=== PATIENT | female | born 1975 | race Caucasian/White ===

== ENCOUNTER 2017-02-01 10:16 | Emergency (ER) | payer BC ==
[~2017-02-01] VITALS: Ht 149.9 cm; Wt 65.5 kg
[~2017-02-01 10:16] MED LIST: FL.05O60 TOP
[2017-02-01 10:18] VITALS: Ht 149.9 cm; Wt 65.5 kg
--- NOTE | 2017-02-01 10:44 | ERD ---
ER Documentation Chief Complaint Date/Time DATE: 02/01/17 TIME: 10:41 Chief Complaint left 1st toe pain/swelling HPI This is a 41-year-old female who presents the emergency department today complaining of left foot and toe pain after being and falling yesterday while wearing a pair of slippers. States that she thought it would be okay this morning but woke up and there is swelling and bruising and she has difficulty bearing weight. States she took ibuprofen last night. Denies any previous trauma, fevers or chills. ROS All systems reviewed and are negative except as per history of present illness. Medications Home Meds Active Scripts Naproxen* (Naprosyn*) 500 Mg Tablet, 500 MG PO BID Y for PAIN AND/OR INFLAMMATION, #30 TAB Prov:LACI SMITH PA-C 02/01/17 Hydrocodone/Acetaminophen ([place] 5-325 Tablet) 1 Each Tablet, 1 TAB PO Q6H Y for PAIN, #10 TAB Prov:LACI SMITH PA-C 02/01/17 Fluocinonide* (Lidex* Oint) 60 Gm Oint, 1 APPLIC TOP BID for 14 Days, EA Prov:PRASANNA LEAL GAS SINGER 08/24/15 Allergies Allergies: Coded Allergies: No Known Allergy (Unverified , 12/24/13) PMhx/Soc History of Surgery: Yes (TUBAL LIGATION) Anesthesia Reaction: No Hx Neurological Disorder: No Hx Respiratory Disorders: No Hx Cardiac Disorders: No Hx Psychiatric Problems: No Hx Miscellaneous Medical Probl: No (ECZEMA ) Hx Alcohol Use: No Hx Substance Use: No Hx Tobacco Use: No Physical Exam Vitals Vital Signs Date Time Temp Pulse Resp B/P Pulse Ox O2 Delivery O2 Flow Rate FiO2 02/01/17 10:18 97.3 67 19 142/71 100 Physical Exam Const: NAD Head: Atraumatic Eyes: Normal Conjunctiva ENT: Normal External Ears, Nose and Mouth. Neck: Full range of motion..~ No meningismus. Resp: Clear to auscultation bilaterally Cardio: Regular rate and rhythm, no murmurs Abd: Soft, non tender, non distended. Normal bowel sounds Skin: No petechiae or rashes MSk: Left foot with no obvious deformity. Mild effusion over dorsal aspect of distal foot and left great toe swelling. Localized ecchymosis primarily over the great toe. Pulses 2+. Distal neurovascularly intact Neur: Awake and alert Psych: Normal Mood and Affect Results 24 hrs Current Medications Medications (Trade) Dose Ordered Sig/Issac Route PRN Reason Start Time Stop Time Status Last Admin Dose Admin Acetaminophen/ Hydrocodone Bitart ([place] (5/325)) 1 tab ONCE ONCE PO 02/01/17 11:00 02/01/17 11:01 DC 02/01/17 10:46 DIAGNOSTIC IMAGING REPORT Patient: DAXA GOMEZ : 1975 Age: 41 Sex: F MR #: [id number] DOS: 02/01/17 0000 Ordering MD: LACI SMITH PA-C Location: [facility] Room/Bed: PROCEDURE: XR Left foot. CLINICAL INDICATION: Left foot pain TECHNIQUE: Three views of the left foot were obtained. COMPARISON: No prior studies are available for comparison. FINDINGS: There is an acute longitudinally oriented essentially nondisplaced intra- articular fracture involving the base of the first proximal phalanx. No additional fractures are identified. Alignment is normal. There is no definite articular surface offset. There is significant forefoot soft tissue swelling. IMPRESSION: 1. Acute longitudinally oriented essentially nondisplaced intra-articular fracture at the base of the first proximal phalanx. 2. Significant forefoot soft tissue swelling. RPTAT: UU .Naveen Bueno MD, MD Date Time Electronically viewed and signed by .Naveen Bueno MD, MD on 02/01/2017 11: 35 .K/ CC: LACI SMITH PA-C Procedures/MDM This is a 41-year-old female presents the emergency department today complaining of left foot and great toe pain after tripping and falling yesterday while wearing a pair of slippers. On physical exam patient did have some localized edema over the distal aspect of her metatarsals as well as ecchymosis over her great toe and therefore did obtain images. Per the radiology report images of the left foot show an acute longitudinally oriented essentially nondisplaced intra-articular fracture at the base of the first proximal phalanx. There is significant forefoot soft tissue swelling. Alignment is normal. There are no additional fractures. This is likely the source of the patient's pain and swelling. Symptoms at this time is consistent with toe fracture. Patient was given [place] here in the emergency department. She was also given crutches and ortho shoe to help ambulate. She will be given a prescription for short course of [place] and Naprosyn for home. At this time the patient is stable for discharge and outpatient management. Patient should follow up with their PCP in the next 1-2 days. They may return to the emergency department sooner for any persistent or worsening of symptoms. Patient understood and agreed with the plan. Departure Diagnosis: Primary Impression: Toe fracture, left Encounter type: initial encounter Toe: great toe Fracture type: closed Phalanx: proximal Fracture alignment: nondisplaced Qualified Code: S92.415A - Closed nondisplaced fracture of proximal phalanx of left great toe, initial encounter Condition: Fair LACI SMITH PA-C Feb 01, 2017 10:44
[2017-02-01] MEDS ORDERED: HYDROCODONE/APAP (5/325) TAB PO ONE (11:00)
--- NOTE | 2017-02-01 11:36 | RADRPT ---
PROCEDURE: XR Left foot. CLINICAL INDICATION: Left foot pain TECHNIQUE: Three views of the left foot were obtained. COMPARISON: No prior studies are available for comparison. FINDINGS: There is an acute longitudinally oriented essentially nondisplaced intra-articular fracture involvin g the base of the first proximal phalanx. No additional fractures are identified. Alignment is normal. There is no definite articular surface offset. There is significant forefoot soft tissue swelling. IMPRESSION: 1. Acute longitudinally oriented essentially nondisplaced intra-articular fracture at the base of th e first proximal phalanx. 2. Significant forefoot soft tissue swelling. RPTAT: UU .Naveen Bueno MD, MD Date Time Electronically viewed and signed by .Naveen Bueno MD, on 02/01/2017 11:35 .K/
[2017-02-01] MEDS ORDERED: HYDR-906 PO (11:48)
[2017-02-01] MEDS ORDERED: NAPR-260 PO (11:49)
== END 2017-02-01 12:02 | disposition home or self-care (01) ==
LOC: FTE 10:16
DX: S92.415A Nondisplaced fracture of proximal phalanx of left great toe, initial encounter for closed fracture (principal); W18.39XA Other fall on same level, initial encounter; Y92.9 Unspecified place or not applicable
CPT/HCPCS: 73630; 99283; Z7610

== ENCOUNTER 2017-12-12 18:10 | Emergency (ER) | END 2017-12-12 20:13 | disposition home or self-care (01) ==